=== PATIENT | female | born 1945 | race Caucasian/White ===

== ENCOUNTER 2022-03-25 04:13 | Day surgery (SDC) | payer OTHER, MEDICARE ==
[2022-03-22 16:43] VITALS: BMI 34.1
[2022-03-25] MEDS ORDERED: KETAMINE HCL 200 MG/20 ML VIAL ONE (07:11)
[2022-03-25 08:56] VITALS: TEMP 98
[2022-03-25 09:19] VITALS: PULSE 61
[2022-03-25 09:35] VITALS: BP 157/79; RESP 18
== END 2022-03-25 09:57 | disposition home or self-care (01) ==
LOC: JASU-ENDO 04:13
PROVIDERS: ATTEND Internal Medicine Gastroenterology
PROC: 0DBM8ZX Excision of Descending Colon, Via Natural or Artificial Opening Endoscopic, Diagnostic (ICD-10-PCS; principal; 2022-03-25 08:00)
DX: Z12.11 Encounter for screening for malignant neoplasm of colon (principal); D12.4 Benign neoplasm of descending colon; K64.8 Other hemorrhoids; K57.30 Diverticulosis of large intestine without perforation or abscess without bleeding
CPT/HCPCS: 88305-TC